=== PATIENT | male | born 1985 | race Caucasian/White ===

== ENCOUNTER 2023-12-06 12:58 | Inpatient (IN) | payer BC ==
[~2023-12-06] VITALS: Ht 175.3 cm; Wt 82.6 kg
[2023-12-06] MEDS: LORazepam 2 MG/ML VIAL IVP ONE ×2 (13:15→15:42)
[2023-12-06] MEDS: ONDANSETRON HCL 4 MG/2 ML VIAL IVP ONE ×2 (13:15→15:42)
[2023-12-06 13:19] VITALS: BP_SYST 141; PULSE 115; RESP 20; TEMP 98.6; O2SAT 99
[2023-12-06 13:21] LABS: HEMATOCRIT 45.3 % (36-54); HEMOGLOBIN 15.7 g/dL (14.0-18.0); LYMPHOCYTES # (AUTO) 1.9 K/uL (1.0-5.5); LYMPHOCYTES % (AUTO) 8.7 % (20.5-51.5); MEAN CORPUSCULAR HEMOGLOBIN 31 pg (27-31); MEAN CORPUSCULAR HGB CONC 35 % (32-36); MEAN CORPUSCULAR VOLUME 88 fL (79.0-98.0); MONOCYTES # (AUTO) 0.6 K/uL (0.0-1.0); MONOCYTES % (AUTO) 2.7 % (1.7-9.3); NEUTROPHILS # (AUTO) 19.8 K/uL (1.8-7.7); NEUTROPHILS % (AUTO) 88.6 % (40.0-70.0); PLATELET COUNT (AUTO) 487 K/uL (130-430); RED BLOOD CELL COUNT(AUTO) 5.15 MIL/uL (4.2-6.2); RED CELL DISTRIBUTION WIDTH 12.2 % (9.0-15.0); WHITE BLOOD COUNT (AUTO) 22.4 K/uL (4.8-10.8)
[2023-12-06] MEDS: NACL 0.9% 2,000 ML IV ONE ×2 (13:52→15:56)
[2023-12-06 13:53] LABS: ANION GAP 13 (5-15); CARBON DIOXIDE 23 mmol/L (23-29); CHLORIDE 93 mmol/L (98-107); CREATININE 1.33 mg/dL (0.55-1.30); GFR AFRICAN AMERICAN 78 mL/min (>90); GFR NON AFRICAN-AMERICAN 65 mL/min (>90); GLUCOSE 132 mg/dL (74-106); POTASSIUM 3.4 mmol/L (3.5-5.1); SODIUM SERUM 129 mmol/L (136-145); UREA NITROGEN, BLOOD 11 mg/dL (8-21)
[2023-12-06 14:07] LABS: BILIRUBIN,URINE NEGATIVE (NEGATIVE); CLARITY/URINE CLEAR (CLEAR); COLOR,URINE YELLOW (YELLOW); GLUCOSE,URINE NEGATIVE (NEGATIVE); KETONES,URINE NEGATIVE (NEGATIVE); LEUKOCYTE ESTERASE ,URINE NEGATIVE (NEGATIVE); NITRITE, URINE NEGATIVE (NEGATIVE); PROTEIN URINE NEGATIVE (NEGATIVE); UROBILINOGEN,URINE 0.2 (0.2-1.0)
[2023-12-06 14:11] LABS: BLOOD, URINE TRACE (NEGATIVE)
[2023-12-06 14:22] LABS: BARBITURATE, URINE NEGATIVE (NEG <=200)
[2023-12-06 14:23] LABS: BENZODIAZEPINE, URINE NEGATIVE (NEG <=150); CANNABINOID, URINE NEGATIVE (NEG <=50); COCAINE, URINE NEGATIVE (NEG <=150); METHAMPHETAMINES SCREEN,URINE NEGATIVE (NEG <=500); OPIATE, URINE NEGATIVE (NEG <=100); PHENCYCLIDINE SCREEN,URINE NEGATIVE (NEG <=25); UR TRICYCLIC ANTIDEPRESSANTS NEGATIVE (NEG <=300); URINE AMPHETAMINE NEGATIVE (NEG <=500); URINE METHADONE NEGATIVE (NEG <=200); URINE OXYCODONE SCREEN NEGATIVE (NEG <=100)
[2023-12-06 15:13] LABS: BACTERIA,URINE None Seen /HPF (None Seen); RBC,URINE 0-3 /HPF (0-3); WBC,URINE 0-3 /HPF (0-3)
[2023-12-06] MEDS ORDERED: LORazepam 2 MG/ML VIAL ONE (15:25)
[2023-12-06] MEDS ORDERED: ONDANSETRON HCL 4 MG/2 ML VIAL ONE (15:27)
[2023-12-06] MEDS ORDERED: levETIRAcetam 1,000 MG in NS 90 ML IV ONE (15:30)
[2023-12-06 15:46] LABS: ABG O2 SAT% ESTIMATE 95.5 % (94.0-98.0); ALLEN'S TEST POSITIVE (P); BLOOD GAS BASE EXCESS -5.9 mmol/L (-2.0-3.0); BLOOD GAS HCO3 17.8 mmol/L (21.0-28.0); BLOOD GAS PCO2 30.5 mmHg (35.0-48.0); BLOOD GAS PH 7.383 (7.350-7.450); BLOOD GAS PO2 86.1 mmHg (83.0-108.0)
[2023-12-06] MEDS ORDERED: AZITHROMYCIN 500 MG/VIAL (ZITHROMAX) IV ONE ×2 (15:49)
[2023-12-06] MEDS: AZITHROMYCIN 500 MG in NS 250 ML IV ONE (15:51)
[2023-12-06] MEDS ORDERED: PIPERACILLIN/TAZOBACTAM 3.375 GM/VIAL (ZOSYN) IV ONE (15:52)
[2023-12-06] MEDS: PIPERACILLIN/TAZO 3.375 GM in NS 50 ML IV ONE (15:53)
[2023-12-06] MEDS: KETOROLAC TROMETHAMINE 30 MG VIAL IVP ONE (16:09)
[2023-12-06] MEDS: guaiFENesin/DEXTROMETHORPHAN 10 ML UDC PO ONE (16:09)
[2023-12-06] MEDS ORDERED: CYCL10TA25 PO (16:49)
[2023-12-06] MEDS ORDERED: EMTR1TAB17 PO (16:49)
[2023-12-06] MEDS ORDERED: [UNRECOGNIZED DRUG - CODE] PO (16:50)
[2023-12-06] MEDS: BENZONATATE 100 MG CAPSULE (TESSALON) PO ONE (17:05)
[2023-12-06] MEDS: VANCOMYCIN HCL 1,000 MG in NS 250 ML IV ONE (17:13)
[2023-12-06] MEDS ORDERED: VANCOMYCIN HCL 1000 MG/VIAL IV ONE ×2 (17:14)
[2023-12-06 17:29] LABS: INFLUENZA TYPE A Negative (NEGATIVE); INFLUENZA TYPE B NEGATIVE (NEGATIVE)
[2023-12-06] MEDS ORDERED: HYDROcodone/ACETAMIN 10-325 MG TAB PO PRN (18:00)
[2023-12-06 18:02] VITALS: BP_SYST 132; PULSE 97; O2SAT 98
[2023-12-06] MEDS ORDERED: ACETAMINOPHEN 325 MG TABLET PO PRN (20:00)
[2023-12-06] MEDS: HEPARIN SODIUM,PORCINE 5,000 UNITS/ML VIAL SUBCUT SCH (21:00)
[2023-12-06 21:50] VITALS: BP_SYST 126; PULSE 102; RESP 18; TEMP 98; O2SAT 97
[2023-12-06 21:57] VITALS: BP_SYST 126; PULSE 100; RESP 18; TEMP 98.3; O2SAT 98
[2023-12-06] MEDS: ZOLPIDEM TARTRATE 5 MG TABLET PO PRN (23:44)
[2023-12-07] VITALS (9 sets, daily range): BP systolic 122–140; PULSE 79–106; RESP 16–18; TEMP 97.5–98.8; O2SAT 94–100
[2023-12-07] MEDS: ALBUTEROL SULFATE 0.083% 2.5 MG/3 ML VIAL.NEB INH PRN (02:05)
[2023-12-07] MEDS: IPRATROPIUM BROM 0.5 MG/2.5 ML VIAL.NEB (ATROVENT) INH PRN (02:05)
[2023-12-07] MEDS: guaiFENesin 200 MG/CODEINE 20 MG/ 10 ML UDC PO PRN (02:53)
[2023-12-07] MEDS: LORazepam 2 MG/ML VIAL IVP PRN (03:00)
[2023-12-07 06:13] LABS: BASOPHILS % (AUTO) 0.1 % (0.0-2.0); EOSINOPHILS % (AUTO) 0.1 % (0.0-4.0); HEMATOCRIT 40.1 % (36-54); HEMOGLOBIN 13.9 g/dL (14.0-18.0); LYMPHOCYTES # (AUTO) 1.9 K/uL (1.0-5.5); LYMPHOCYTES % (AUTO) 12.7 % (20.5-51.5); MEAN CORPUSCULAR HEMOGLOBIN 31 pg (27-31); MEAN CORPUSCULAR HGB CONC 35 % (32-36); MEAN CORPUSCULAR VOLUME 88 fL (79.0-98.0); MONOCYTES # (AUTO) 1.5 K/uL (0.0-1.0); NEUTROPHILS # (AUTO) 11.4 K/uL (1.8-7.7); NEUTROPHILS % (AUTO) 77.1 % (40.0-70.0); PLATELET COUNT (AUTO) 386 K/uL (130-430); RED BLOOD CELL COUNT(AUTO) 4.55 MIL/uL (4.2-6.2); RED CELL DISTRIBUTION WIDTH 11.9 % (9.0-15.0); WHITE BLOOD COUNT (AUTO) 14.8 K/uL (4.8-10.8)
[2023-12-07 06:40] LABS: ALBUMIN 3.3 g/dL (3.4-4.8); CALCIUM 8.2 mg/dL (8.4-11.0); CREATININE 0.96 mg/dL (0.55-1.30); POTASSIUM 3.8 mmol/L (3.5-5.1); TOTAL BILIRUBIN 0.4 mg/dL (0.0-1.0); TOTAL PROTEIN, SERUM 6.4 g/dL (6.4-8.3)
[2023-12-07] MEDS: PIPERACILLIN/TAZO 3.375 GM in D5W 50 ML IV ONE (10:03)
[2023-12-07] MEDS: MORPHINE 2 MG/ML INJ. SYRINGE IVP PRN (12:02)
[2023-12-07] MEDS ORDERED: methylPREDNISolone SOD SUCC/PF 62.5 MG/ML VIAL IVP ONE (13:00)
[2023-12-07] MEDS: METHYLPREDNISOLONE SOD SUCC 40 MG/ML VIAL IVP ONE (14:06)
[2023-12-07] MEDS: PIPERACILLIN/TAZO 3.375 GM in D5W 50 ML IV SCH (15:08)
[2023-12-07] MEDS ORDERED: iohexoL 350 mgI/mL, 100 ML INFUS..BTL IV ONE (15:20)
[2023-12-07] MEDS: EMTRICITABINE PO SCH (20:43)
[2023-12-07] MEDS: TENOFOVIR ALAFENAMIDE PO SCH (20:43)
[2023-12-07] MEDS: [UNRECOGNIZED DRUG - OTHER] PO SCH (20:43)
[2023-12-07] MEDS: EFAVIRENZ 600 MG PO SCH (20:43)
[2023-12-07] MEDS: METHYLPREDNISOLONE SOD SUCC 40 MG/ML VIAL IVP SCH (20:46)
[2023-12-07] MEDS ORDERED: SUSTIVA 600 MG PO SCH (21:00)
[2023-12-07] MEDS ORDERED: EMTRICITABINE 200 MG CAPSULE PO SCH ×2 (21:00)
[2023-12-08] VITALS (7 sets, daily range): BP systolic 123–140; PULSE 81–104; RESP 18–20; TEMP 97.5–98.8; O2SAT 95–100
[2023-12-08] MEDS: guaiFENesin/DEXTROMETHORPHAN 10 ML UDC PO PRN (04:39)
[2023-12-08 06:29] LABS: BASOPHILS % (AUTO) 0.2 % (0.0-2.0); EOSINOPHILS % (AUTO) 0.1 % (0.0-4.0); HEMATOCRIT 41.8 % (36-54); HEMOGLOBIN 14.2 g/dL (14.0-18.0); LYMPHOCYTES # (AUTO) 2.9 K/uL (1.0-5.5); LYMPHOCYTES % (AUTO) 20.2 % (20.5-51.5); MEAN CORPUSCULAR HEMOGLOBIN 30 pg (27-31); MEAN CORPUSCULAR HGB CONC 34 % (32-36); MEAN CORPUSCULAR VOLUME 88 fL (79.0-98.0); MONOCYTES # (AUTO) 1.1 K/uL (0.0-1.0); MONOCYTES % (AUTO) 7.7 % (1.7-9.3); NEUTROPHILS # (AUTO) 10.3 K/uL (1.8-7.7); NEUTROPHILS % (AUTO) 71.8 % (40.0-70.0); PLATELET COUNT (AUTO) 424 K/uL (130-430); RED BLOOD CELL COUNT(AUTO) 4.76 MIL/uL (4.2-6.2); RED CELL DISTRIBUTION WIDTH 12.6 % (9.0-15.0); WHITE BLOOD COUNT (AUTO) 14.3 K/uL (4.8-10.8)
[2023-12-08 06:56] LABS: ALBUMIN 3.8 g/dL (3.4-4.8); CALCIUM 8.7 mg/dL (8.4-11.0); CREATININE 1.05 mg/dL (0.55-1.30); POTASSIUM 3.6 mmol/L (3.5-5.1); TOTAL BILIRUBIN 0.4 mg/dL (0.0-1.0); TOTAL PROTEIN, SERUM 7.4 g/dL (6.4-8.3)
[2023-12-08] MEDS: predniSONE 20 MG TABLET PO SCH (09:47)
[2023-12-08] MEDS: HYDROcodone/ACETAMIN 5-325 MG TAB (NORCO/ VICODIN) PO PRN (10:06)
[2023-12-08] MEDS: ACETAMINOPHEN 325 MG TABLET PO PRN (17:46)
[2023-12-09] VITALS (9 sets, daily range): BP systolic 111–137; PULSE 64–89; RESP 16–18; TEMP 96.9–98.1; O2SAT 96–99
[2023-12-09 09:02] LABS: BASOPHILS % (AUTO) 0.4 % (0.0-2.0); EOSINOPHILS # (AUTO) 0.1 K/uL (0.0-0.4); EOSINOPHILS % (AUTO) 0.8 % (0.0-4.0); HEMATOCRIT 42.4 % (36-54); HEMOGLOBIN 14.5 g/dL (14.0-18.0); LYMPHOCYTES % (AUTO) 28.6 % (20.5-51.5); MEAN CORPUSCULAR HEMOGLOBIN 30 pg (27-31); MEAN CORPUSCULAR HGB CONC 34 % (32-36); MEAN CORPUSCULAR VOLUME 88 fL (79.0-98.0); MONOCYTES # (AUTO) 0.9 K/uL (0.0-1.0); MONOCYTES % (AUTO) 8.9 % (1.7-9.3); NEUTROPHILS # (AUTO) 6.5 K/uL (1.8-7.7); NEUTROPHILS % (AUTO) 61.3 % (40.0-70.0); PLATELET COUNT (AUTO) 397 K/uL (130-430); RED CELL DISTRIBUTION WIDTH 12.5 % (9.0-15.0)
[2023-12-09 09:04] LABS: CALCIUM 8.9 mg/dL (8.4-11.0); CREATININE 1.02 mg/dL (0.55-1.30); POTASSIUM 3.5 mmol/L (3.5-5.1)
[2023-12-09 09:05] LABS: WHITE BLOOD COUNT (AUTO) 10.6 K/uL (4.8-10.8)
[2023-12-09] MEDS: AZITHROMYCIN 250 MG TABLET PO ONE (09:42)
[2023-12-09] MEDS: PANTOPRAZOLE SODIUM 40 MG TAB PO SCH (09:54)
[2023-12-09] MEDS: METHYLPREDNISOLONE SOD SUCC 40 MG/ML VIAL IVP SCH (10:15)
[2023-12-09] MEDS: ONDANSETRON HCL 4 MG/2 ML VIAL IVP PRN (10:16)
[2023-12-10] VITALS (7 sets, daily range): BP systolic 115–140; PULSE 75–95; RESP 16–18; TEMP 97.7–98.7; O2SAT 96–99
[2023-12-10 06:53] LABS: BASOPHILS % (AUTO) 0.3 % (0.0-2.0); EOSINOPHILS % (AUTO) 0.3 % (0.0-4.0); HEMATOCRIT 43.6 % (36-54); LYMPHOCYTES # (AUTO) 3.6 K/uL (1.0-5.5); LYMPHOCYTES % (AUTO) 25.1 % (20.5-51.5); MEAN CORPUSCULAR HEMOGLOBIN 30 pg (27-31); MEAN CORPUSCULAR HGB CONC 34 % (32-36); MEAN CORPUSCULAR VOLUME 89 fL (79.0-98.0); MONOCYTES % (AUTO) 7.1 % (1.7-9.3); NEUTROPHILS # (AUTO) 9.5 K/uL (1.8-7.7); NEUTROPHILS % (AUTO) 67.2 % (40.0-70.0); PLATELET COUNT (AUTO) 450 K/uL (130-430); RED BLOOD CELL COUNT(AUTO) 4.92 MIL/uL (4.2-6.2); RED CELL DISTRIBUTION WIDTH 12.4 % (9.0-15.0); WHITE BLOOD COUNT (AUTO) 14.2 K/uL (4.8-10.8)
[2023-12-10 07:51] LABS: ALBUMIN 3.9 g/dL (3.4-4.8); CALCIUM 9.2 mg/dL (8.4-11.0); CREATININE 1.1 mg/dL (0.55-1.30); POTASSIUM 4.3 mmol/L (3.5-5.1); TOTAL BILIRUBIN 0.2 mg/dL (0.0-1.0); TOTAL PROTEIN, SERUM 7.7 g/dL (6.4-8.3)
[2023-12-10] MEDS ORDERED: GUAI10LI14 PO (12:59)
[2023-12-10] MEDS ORDERED: METH-776 PO (12:59)
[2023-12-10] MEDS ORDERED: ZIT250 PO (15:05)
[2023-12-11 18:06] LABS: MYCOPLASMA PNEUMONIAE IgG 459 U/mL (0-99); MYCOPLASMA PNEUMONIAE IgM 869 U/mL (0-769)
== END 2023-12-10 17:10 | disposition home or self-care (01) | DRG 871 ==
LOC: SED 12:58 → STU 17:54
PROVIDERS: ADMIT Internal Medicine; ATTEND Internal Medicine
DX: A41.9 Sepsis, unspecified organism (principal); J18.9 Pneumonia, unspecified organism; N17.0 Acute kidney failure with tubular necrosis; E87.1 Hypo-osmolality and hyponatremia; D64.9 Anemia, unspecified; J40 Bronchitis, not specified as acute or chronic; Z20.822 Contact with and (suspected) exposure to COVID-19; E87.6 Hypokalemia; J06.9 Acute upper respiratory infection, unspecified; R65.20 Severe sepsis without septic shock; Z79.899 Other long term (current) drug therapy; Z88.8 Allergy status to other drugs, medicaments and biological substances
CPT/HCPCS: 36415; 36600; 70450-TC; 70491; 71045; 71275; 80048; 80053; 80307; 81000; 81001; 81015; 82803; 83605; 83880; 84484; 85025; 86738; 87040; 94070; 94640; 94760; 96365; 99291; 99292; G0378; J0456; J0696; J1030; J1644; J1885; J2060; J2270; J2405; J2543; J3370; J7060; J7512; Q0144; Q9967